=== PATIENT | female | born 1995 | race Caucasian/White ===

== ENCOUNTER 2016-12-07 17:25 | Outpatient (CLI) | payer MEDICAID ==
--- NOTE | 2016-12-07 18:41 | Non Stress Test Report ---
Non Stress Test Datetime Report Generated by CPN: 12/07/2016 18:41 DEMOGRAPHIC EGA NST: 35.2 INDICATION Indication for Study: Diabetes Mellitus; Ordered by Provider MONITORING Monitor Explained: Monitor Explained; Test Explained; Patient Verbalized Understanding Time on Monitor: 12/07/2016 17:44 Time off Monitor: 12/07/2016 18:22 NST Duration: 38 NST INTERVENTIONS NST Interventions: PO Hydration; Reposition Patient Physician Notified NST: Dr. Neilsen BABY A: [id number] BABY A Movement : Present Contraction Frequency : Occassional FHR Baseline : 145 Accelerations : 15X15 Decelerations : None Variability : Moderate 6-25bpm NST Review: Meets Criteria for Reactive NST NST Review and Verified By : Jordon Malagon RN NST Results: Reactive NST REPORT Report Trigger: Send Report
--- NOTE | 2016-12-07 21:46 | L&D Discharge Summary ---
OB Discharge Summary Datetime Report Generated by CPN: 12/07/2016 21:46 DISCHARGE DIAGNOSIS Diagnosis/Symptoms: Reassuring Surveillance - Annotate Details Diagnoses/Symptoms Other: Reactive NST Number of Babies in Womb: 1 Parity: 1 DIET/ACTIVITY/RESTRICTIONS Diet: Regular Activity: Normal Activity TEACHING/INSTRUCTIONS/REFERRALS Instructions Given To: Pt Instructions Understood: Patient Verbalized Understanding; Support Person Verbalized Understanding Referrals: None Educational Materials- Other: kick Counts DISCHARGE INFORMATION Discharged AMA: No Discharge Date/Time: 12/07/2016 18:36 Discharged To: Home Discharge Provider Name: Dr. Dixon Accompanied By: Self Discharge Method: Ambulatory Condition: Stable FOLLOW UP INFORMATION Follow Up With: [facility] Follow Up On: As Scheduled Follow Up Phone Number: [facility] -
--- NOTE | 2016-12-14 22:47 | L&D Current Admission ---
Current Admit Datetime Report Generated by CPN: 12/14/2016 22:45 Chief Complaint: Pt sent from office for repeat NST (12/07/2016 17:50:Kayla Nguyen RN)
--- NOTE | 2016-12-14 22:47 | L&D General Admission ---
General Admit Datetime Report Generated by CPN: 12/14/2016 22:45 Patient Age: 21 (10/27/2016 11:36:QS system process) EDC: 01/09/2017 00:00 (12/07/2016 17:35:Kayla Nguyen RN) : 1 (12/07/2016 17:35:Kayla Nguyen RN) Para: 1 (12/07/2016 17:35:Kayla Nguyen RN) Term: 1 (12/07/2016 17:35:Kayla Nguyen RN) : 0 (12/07/2016 17:35:Kayla Nguyen RN) Spontaneous Abortions: 0 (12/07/2016 17:35:Kayla Nguyen RN) Induced Abortions: 0 (12/07/2016 17:35:Kayla Nguyen RN) Livin (12/07/2016 17:35:Kayla Nguyen RN) Cesareans: 1 (12/07/2016 17:35:Kayla Nguyen RN) VBACs: 0 (12/07/2016 17:35:Kayla Nguyen RN) Ectopic: 0 (12/07/2016 17:35:Kayla Nguyen RN) Multiple Births: 0 (12/07/2016 17:35:Kayla Nguyen RN) Baby, Number in Womb: 1 (12/07/2016 17:35:Kayla Nguyen RN) Primary Chief Unit Forester: [facility] (12/07/2016 17:35:Kayla Nguyen RN) Adequate Care: Yes (12/07/2016 17:35:Kayla Nguyen RN) Prepregnancy Weight (lb): 180 (12/07/2016 17:35:Kayla Nguyen RN) Medication Allergies: No Known Allergies (12/08/2015) (10/27/2016 11:36:QS system process) Primary Language: South African (12/07/2016 17:35:Kayla Nguyen RN) Address: [address] [place] [address] (10/27/2016 11:36:QS system process) Zipcode: [address] (10/27/2016 11:36:QS system process) Home (12/07/2016 17:26:QS system process) Home (10/27/2016 11:36:QS system process) SSN: [id number] (10/27/2016 11:36:QS system process) Next of Kin Name: ZAHRA NAGY (10/27/2016 11:36:QS system process) Next of Kin (10/27/2016 11:36:QS system process) Next of Kin Relationship: OR (10/27/2016 11:36:QS system process) Date of : 1995 (10/27/2016 11:36:QS system process) Marital Status: Single (10/27/2016 11:36:QS system process) Sex: Female (10/27/2016 11:36:QS system process) Race: (10/27/2016 11:36:QS system process) Ethnicity: Non- or (10/27/2016 11:36:QS system process) Protestant: None (10/27/2016 11:36:QS system process) Blood Type: O Positive (12/07/2016 17:35:Kayla Nguyen RN) Previous Procedures: Ultrasound (12/07/2016 17:35:Kayla Nguyen RN) Current Procedures: Ultrasound (12/07/2016 17:35:Kayla Nguyen RN) History of Gestational Diabetes: Yes (12/07/2016 17:35:Kayla Nguyen RN) Comments Obstetrical History: G1- C/S Pre-eclampsia @ 39 wks G2- Current GDM on Glyburide (12/07/2016 17:35:Kayla Nguyen RN) Med Hx Diabetes: Yes (12/07/2016 17:35:Kayla Nguyen RN) Diabetes Type: Gestational Diabetes (12/07/2016 17:35:Kayla Nguyen RN)
--- NOTE | 2016-12-14 22:48 | L&D Discharge Summary ---
OB Discharge Summary Datetime Report Generated by CPN: 12/14/2016 22:45 DISCHARGE DIAGNOSIS Diagnosis/Symptoms: Reassuring Surveillance - Annotate Details Diagnoses/Symptoms Other: Reactive NST Gestation: 36.2 Number of Babies in Womb: 1 Parity: 1 DIET/ACTIVITY/RESTRICTIONS Diet: Regular Activity: Normal Activity TEACHING/INSTRUCTIONS/REFERRALS Instructions Given To: Pt Instructions Understood: Patient Verbalized Understanding; Support Person Verbalized Understanding Referrals: None Educational Materials- Other: kick Counts DISCHARGE INFORMATION Discharged AMA: No Discharge Date/Time: 12/07/2016 18:36 Discharged To: Home Discharge Provider Name: Dr. Dixon Accompanied By: Self Discharge Method: Ambulatory Condition: Stable FOLLOW UP INFORMATION Follow Up With: [facility] Follow Up On: As Scheduled Follow Up Phone Number: [facility] -
--- NOTE | 2016-12-15 04:47 | L&D General Admission ---
General Admit Datetime Report Generated by CPN: 12/15/2016 04:45 INFORMATION Patient Age: 21 (10/27/2016 11:36:QS system process) EDC: 01/09/2017 00:00 (12/07/2016 17:35:Kayla Nguyen RN) : 1 (12/07/2016 17:35:Kayla Nguyen RN) Para: 1 (12/07/2016 17:35:Kayla Nguyen RN) Term: 1 (12/07/2016 17:35:Kayla Nguyen RN) : 0 (12/07/2016 17:35:Kayla Nguyen RN) Spontaneous Abortions: 0 (12/07/2016 17:35:Kayla Nguyen RN) Induced Abortions: 0 (12/07/2016 17:35:Kayla Nguyen RN) Livin (12/07/2016 17:35:Kayla Nguyen RN) Cesareans: 1 (12/07/2016 17:35:Kayla Nguyen RN) VBACs: 0 (12/07/2016 17:35:Kayla Nguyen RN) Ectopic: 0 (12/07/2016 17:35:Kayla Nguyen RN) Multiple Births: 0 (12/07/2016 17:35:Kayla Nguyen RN) Baby, Number in Womb: 1 (12/07/2016 17:35:Kayla Nguyen RN) CARE Primary Investigator Fraud: [facility] (12/07/2016 17:35:Kayla Nguyen RN) Adequate Care: Yes (12/07/2016 17:35:Kayla Nguyen RN) Prepregnancy Weight (lb): 180 (12/07/2016 17:35:Kayla Nguyen RN) Prepregnancy Weight (kg): 81.8 (12/07/2016 17:35:QS system process) Height (in): 63 (12/07/2016 17:56:QS system process) ALLERGIES Medication Allergies: No Known Allergies (12/08/2015) (10/27/2016 11:36:QS system process) COMMUNICATION Primary Language: Swedish (12/07/2016 17:35:Kayla Nguyen RN) DEMOGRAPHICS Address: [address] [place] [address], [address] [address] (10/27/2016 11:36:QS system process) Zipcode: [phone] (10/27/2016 11:36:QS system process) Home (12/07/2016 17:26:QS system process) Home (10/27/2016 11:36:QS system process) N: [id number] (10/27/2016 11:36:QS system process) Next of Kin Name: ZAHRA NAGY (10/27/2016 11:36:QS system process) Next of Kin (10/27/2016 11:36:QS system process) Next of Kin Relationship: OR (10/27/2016 11:36:QS system process) Date of : 1995 (10/27/2016 11:36:QS system process) Marital Status: Single (10/27/2016 11:36:QS system process) Sex: Female (10/27/2016 11:36:QS system process) Race: (10/27/2016 11:36:QS system process) Ethnicity: Non- or (10/27/2016 11:36:QS system process) Scientologist: None (10/27/2016 11:36:QS system process) LABS Blood Type: O Positive (12/07/2016 17:35:Kayla Nguyen RN) OB/PREVIOUS HISTORY Previous Procedures: Ultrasound (12/07/2016 17:35:Kayla Nguyen RN) Current Procedures: Ultrasound (12/07/2016 17:35:Kayla Nguyen RN) History of Gestational Diabetes: Yes (12/07/2016 17:35:Kayla Nguyen RN) Comments Obstetrical History: G1- C/S Pre-eclampsia @ 39 wks G2- Current GDM on Glyburide (12/07/2016 17:35:Kayla Nguyen RN) MEDICAL HISTORY Med Hx Diabetes: Yes (12/07/2016 17:35:Kayla Nguyen RN) Diabetes Type: Gestational Diabetes (12/07/2016 17:35:Kayla Nguyen RN)
--- NOTE | 2016-12-15 04:47 | L&D Discharge Summary ---
OB Discharge Summary Datetime Report Generated by CPN: 12/15/2016 04:45 DISCHARGE DIAGNOSIS Diagnosis/Symptoms: Reassuring Surveillance - Annotate Details Diagnoses/Symptoms Other: Reactive NST Gestation: 36.2 Number of Babies in Womb: 1 Parity: 1 DIET/ACTIVITY/RESTRICTIONS Diet: Regular Activity: Normal Activity TEACHING/INSTRUCTIONS/REFERRALS Instructions Given To: Pt Instructions Understood: Patient Verbalized Understanding; Support Person Verbalized Understanding Referrals: None Educational Materials- Other: kick Counts DISCHARGE INFORMATION Discharged AMA: No Discharge Date/Time: 12/07/2016 18:36 Discharged To: Home Discharge Provider Name: Dr. Dixon Accompanied By: Self Discharge Method: Ambulatory Condition: Stable FOLLOW UP INFORMATION Follow Up With: [facility] Follow Up On: As Scheduled Follow Up Phone Number: [facility] -
--- NOTE | 2016-12-15 04:47 | L&D Current Admission ---
Current Admit Datetime Report Generated by CPN: 12/15/2016 04:45 ADMISSION INFORMATION Chief Complaint: Pt sent from office for repeat NST (12/07/2016 17:50:Kayla Nguyen RN)
--- NOTE | 2016-12-15 10:47 | L&D General Admission ---
General Admit Datetime Report Generated by CPN: 12/15/2016 10:45 INFORMATION Patient Age: 21 (10/27/2016 11:36:QS system process) EDC: 01/09/2017 00:00 (12/07/2016 17:35:Kayla Nguyen RN) : 1 (12/07/2016 17:35:Kayla Nguyen RN) Para: 1 (12/07/2016 17:35:Kayla Nguyen RN) Term: 1 (12/07/2016 17:35:Kayla Nguyen RN) : 0 (12/07/2016 17:35:Kayla Nguyen RN) Spontaneous Abortions: 0 (12/07/2016 17:35:Kayla Nguyen RN) Induced Abortions: 0 (12/07/2016 17:35:Kayla Nguyen RN) Livin (12/07/2016 17:35:Kayla Nguyen RN) Cesareans: 1 (12/07/2016 17:35:Kayla Nguyen RN) VBACs: 0 (12/07/2016 17:35:Kayla Nguyen RN) Ectopic: 0 (12/07/2016 17:35:Kayla Nguyen RN) Multiple Births: 0 (12/07/2016 17:35:Kayla Nguyen RN) Baby, Number in Womb: 1 (12/07/2016 17:35:Kayla Nguyen RN) CARE Primary Pressurised Container Filler: [facility] (12/07/2016 17:35:Kayla Nguyen RN) Adequate Care: Yes (12/07/2016 17:35:Kayla Nguyen RN) Prepregnancy Weight (lb): 180 (12/07/2016 17:35:Kayla Nguyen RN) Prepregnancy Weight (kg): 81.8 (12/07/2016 17:35:QS system process) Height (in): 63 (12/07/2016 17:56:QS system process) ALLERGIES Medication Allergies: No Known Allergies (12/08/2015) (10/27/2016 11:36:QS system process) COMMUNICATION Primary Language: Ivorian (12/07/2016 17:35:Kayla Nguyen RN) DEMOGRAPHICS Address: [address] [place] [address], [address] [address] (10/27/2016 11:36:QS system process) Zipcode: [address] (10/27/2016 11:36:QS system process) Home (12/07/2016 17:26:QS system process) Home (10/27/2016 11:36:QS system process) N: [phone] (10/27/2016 11:36:QS system process) Next of Kin Name: ZAHRA NAGY (10/27/2016 11:36:QS system process) Next of Kin (10/27/2016 11:36:QS system process) Next of Kin Relationship: OR (10/27/2016 11:36:QS system process) Date of : 1995 (10/27/2016 11:36:QS system process) Marital Status: Single (10/27/2016 11:36:QS system process) Sex: Female (10/27/2016 11:36:QS system process) Race: (10/27/2016 11:36:QS system process) Ethnicity: Non- or (10/27/2016 11:36:QS system process) Adventist: None (10/27/2016 11:36:QS system process) LABS Blood Type: O Positive (12/07/2016 17:35:Kayla Nguyen RN) OB/PREVIOUS HISTORY Previous Procedures: Ultrasound (12/07/2016 17:35:Kayla Nguyen RN) Current Procedures: Ultrasound (12/07/2016 17:35:Kayla Nguyen RN) History of Gestational Diabetes: Yes (12/07/2016 17:35:Kayla Nguyen RN) Comments Obstetrical History: G1- C/S Pre-eclampsia @ 39 wks G2- Current GDM on Glyburide (12/07/2016 17:35:Kayla Nguyen RN) MEDICAL HISTORY Med Hx Diabetes: Yes (12/07/2016 17:35:Kayla Nguyen RN) Diabetes Type: Gestational Diabetes (12/07/2016 17:35:Kayla Nguyen RN)
--- NOTE | 2016-12-15 10:47 | L&D Discharge Summary ---
OB Discharge Summary Datetime Report Generated by CPN: 12/15/2016 10:45 DISCHARGE DIAGNOSIS Diagnosis/Symptoms: Reassuring Surveillance - Annotate Details Diagnoses/Symptoms Other: Reactive NST Gestation: 36.2 Number of Babies in Womb: 1 Parity: 1 DIET/ACTIVITY/RESTRICTIONS Diet: Regular Activity: Normal Activity TEACHING/INSTRUCTIONS/REFERRALS Instructions Given To: Pt Instructions Understood: Patient Verbalized Understanding; Support Person Verbalized Understanding Referrals: None Educational Materials- Other: kick Counts DISCHARGE INFORMATION Discharged AMA: No Discharge Date/Time: 12/07/2016 18:36 Discharged To: Home Discharge Provider Name: Dr. Dixon Accompanied By: Self Discharge Method: Ambulatory Condition: Stable FOLLOW UP INFORMATION Follow Up With: [facility] Follow Up On: As Scheduled Follow Up Phone Number: [facility] -
--- NOTE | 2016-12-15 10:47 | L&D Current Admission ---
Current Admit Datetime Report Generated by CPN: 12/15/2016 10:45 ADMISSION INFORMATION Chief Complaint: Pt sent from office for repeat NST (12/07/2016 17:50:Kayla Nguyen RN)
== END 2016-12-07 18:36 | disposition home or self-care (01) ==
LOC: LC 17:25
PROVIDERS: ATTEND Obstetrics & Gynecology
PROC: 4A1HXCZ Monitoring of Products of Conception, Cardiac Rate, External Approach (ICD-10-PCS; principal; 2016-12-07)
DX: Z34.83 Encounter for supervision of other normal pregnancy, third trimester (principal); Z36 Encounter for antenatal screening of mother; Z3A.35 35 weeks gestation of pregnancy
CPT/HCPCS: 59025

== ENCOUNTER 2016-12-29 12:05 | Outpatient (CLI) | payer MEDICAID | END 2016-12-29 12:33 | disposition home or self-care (01) | LOC: LC 12:05 | PROVIDERS: ATTEND Obstetrics & Gynecology | PROC: 4A1HXCZ Monitoring of Products of Conception, Cardiac Rate, External Approach (ICD-10-PCS; principal; 2016-12-29) | DX: O24.419 Gestational diabetes mellitus in pregnancy, unspecified control (principal); Z3A.38 38 weeks gestation of pregnancy | CPT/HCPCS: 59025 ==

== ENCOUNTER 2017-01-04 05:02 | Inpatient (IN) | payer MEDICAID ==
[2017-01-03 12:58] LABS: APPEARANCE,URINE CLEAR; BILIRUBIN,URINE NEGATIVE (NEGATIVE); GLUCOSE, URINE NEGATIVE (NEGATIVE); KETONES,URINE NEGATIVE (NEGATIVE); LEUKOCYTE ESTERASE,URINE NEGATIVE (NEGATIVE); NITRITE,URINE NEGATIVE (NEGATIVE); PROTEIN,URINE NEGATIVE (NEGATIVE); URINE SPECIFIC GRAVITY 1.008; UROBILINOGEN,URINE NEGATIVE mg/dL (<2.0)
[2017-01-03 13:06] LABS: ABSOLUTE BASOPHILS # (AUTO) 0.1 10^3/uL (0.0-0.2); ABSOLUTE EOSINOPHILS # (AUTO) 0.1 10^3/uL (0.0-0.6); ABSOLUTE LYMPHOCYTES (AUTO) 2.1 10^3/uL (0.5-4.7); ABSOLUTE MONOCYTES (AUTO) 0.6 10^3/uL (0.1-1.4); ABSOLUTE NEUT (AUTO) 9.3 10^3/uL (1.7-8.2); BASOPHILS % (AUTO) 0.4 % (0-2); EOSINOPHILS % (AUTO) 0.7 % (0-6); HEMATOCRIT 36.7 % (36.0-47.0); HEMOGLOBIN 11.9 g/dL (12.0-15.5); LYMPHOCYTES % (AUTO) 17.1 % (13-45); MEAN CORPUSCULAR HEMOGLOBIN 24.6 pg (27.0-33.4); MEAN CORPUSCULAR HGB CONC 32.6 g/dL (32.0-36.0); MEAN CORPUSCULAR VOLUME 76 fl (80-97); MONOCYTES % (AUTO) 5.1 % (3-13); RED BLOOD COUNT 4.85 10^6/uL (3.72-5.28); RED CELL DISTRIBUTION WIDTH 18.1 % (11.5-14.0); SEGMENTED NEUTROPHILS % (AUTO) 76.7 % (42-78); WHITE BLOOD COUNT 12.2 10^3/uL (4.0-10.5)
[2017-01-03 13:27] LABS: URINE BARBITURATES SCREEN NEGATIVE; URINE METHADONE SCREEN NEGATIVE; URINE OPIATES LOW NEGATIVE; URINE PHENCYCLIDINE SCREEN NEGATIVE
[~2017-01-04 05:02] MED LIST: CEFAZOLIN 2 GM/D5W RTU 2 GM/50 ML RTUPB IV PRN; RINGERS SOLUTION,LACTATED 1,000 ML IV PRN; RINGERS SOLUTION,LACTATED 2,000 ML IV PRN
[2017-01-04] MEDS ORDERED: EPHEDRINE SULFATE INJ 50 MG/1 ML AMPULE ONE (07:31)
[2017-01-04] MEDS ORDERED: MIDAZOLAM 2 MG/2 ML INJ ONE (07:31)
[2017-01-04] MEDS ORDERED: OXYTOCIN/NORMAL SALINE 20 UNIT/1,000 ML RTUINJ ONE (07:32)
[2017-01-04] MEDS ORDERED: OXYCODONE-ACETAMINOPHEN 5-325 MG TABLET PO PRN ×3 (07:57→08:47)
[2017-01-04] MEDS ORDERED: MEPERIDINE HCL/PF INJ 25 MG/1 ML DISP.SYRIN IV PRN (07:57)
[2017-01-04] MEDS ORDERED: FENTANYL CITRATE INJ/PF 100 MCG/2 ML AMPUL IV PRN ×3 (07:57)
[2017-01-04] MEDS ORDERED: PROMETHAZINE HCL INJ 25 MG/1 ML VIAL IV PRN ×3 (07:57→08:47)
[2017-01-04] MEDS ORDERED: MORPHINE SULFATE 10 MG/ML INJ IV PRN (07:57)
[2017-01-04] MEDS ORDERED: DIPHENHYDRAMINE HCL 50 MG/ML VIAL IV PRN (07:57)
[2017-01-04] MEDS ORDERED: RINGERS SOLUTION,LACTATED 1,000 ML IV PRN (08:47)
[2017-01-04] MEDS ORDERED: MEASLES,MUMPS&RUBELLA VACC/PF 0.5 ML VIAL SUBCUT PRN (08:47)
[2017-01-04] MEDS ORDERED: SIMETHICONE 80 MG TAB.CHEW PO PRN (08:47)
[2017-01-04] MEDS ORDERED: ACETAMINOPHEN 325 MG TABLET PO PRN (08:47)
[2017-01-04] MEDS ORDERED: OXYTOCIN/NORMAL SALINE 1,000 ML IV PRN (08:47)
[2017-01-04] MEDS ORDERED: ACETAMINOPHEN 100 ML IV PRN (08:47)
[2017-01-04] MEDS ORDERED: DIPH/PERTUSS(ACELL)/TETANUS VAC/PF 0.5 ML SYR (>=10YO) IM PRN (08:47)
--- NOTE | 2017-01-04 08:57 | Operative Report ---
Operative Report DATE OF SURGERY: 01/04/17 PREOPERATIVE DIAGNOSIS: Repeat to prevent uterine rupture POSTOPERATIVE DIAGNOSIS: Same OPERATION: via low transverse uterine incision SURGEON: KAREN RAMESH CAMP ATTENDANT: OR staff ANESTHESIA: Spinal TISSUE REMOVED OR ALTERED: Placenta COMPLICATIONS: None ESTIMATED BLOOD LOSS: 250 mL INTRAOPERATIVE FINDINGS: Viable male normal uterus tubes and ovaries PROCEDURE: Patient was taken to the OR and placed in supine position after her spinal anesthesia. She is prepared and draped in sterile fashion. Eugene was placed for drainage of the bladder. Low transverse incision was made and carried down the level of the fascia. The fascial incision was made with C safe knife and extended bilaterally with curved Valente scissors. The fascia was off the rectus muscles using sharp and blunt dissection. The rectus muscles are in the midline. The peritoneum was entered without incident. Bladder blade was placed in uterine segment was identified. A low transverse incision was made creating a bladder flap. Bladder blade was placed low transverse uterine incision was made with the knife and extended with fingertips. The baby was delivered with some fundal pressure and the assistance of a Kiwi vacuum. It took one pull with pressure in the green. No pop offs. Mouth and nose were suctioned free. The cord is doubly clamped and cut. Baby is passed off to the wirer in attendance. The placenta was manually extracted with trailing membranes. The uterus was externalized wrapped in a moist lap sponge. Uterine contents wiped free. Uterus was closed with a running locking layer of 0 chromic suture using the second layer to imbricate the first completing a double layer closure of the uterus. The serosa was closed with a running 2-0 chromic stitch. The pelvis was irrigated and suctioned free of fluid the uterus was replaced in the abdomen. The abdominal wall peritoneum was closed with running 2-0 chromic stitch. Fascia was closed with a running 0 Vicryl in 2 segments. Rustam's layer was brought together with 0 plain gut stitch and the skin was closed with running subcuticular 4-0 undyed Vicryl stitch. The wound was dressed mother and baby did well.
[2017-01-04] MEDS: FENTANYL CITRATE INJ/PF 100 MCG/2 ML AMPUL ONE ×4 (10:00→10:15)
[2017-01-04] MEDS ORDERED: ONDANSETRON HCL INJ/PF 4 MG/2 ML SDV ONE (10:46)
[2017-01-04] MEDS: KETOROLAC TROMETHAMINE INJ/PF 30 MG/1 ML SDV IV SCH ×2 (11:34→21:16)
[2017-01-04] MEDS: HYDROMORPHONE HCL INJ/PF 2 MG/ML AMPULE IV PRN ×2 (11:34→15:34)
[2017-01-04] MEDS: DOCUSATE SODIUM 100 MG CAPSULE PO SCH ×2 (12:50→17:06)
[2017-01-04] MEDS: PRENATAL VITAMIN W-O CA NO5/FE FUMARATE/FA CAPSULE PO SCH (12:50)
[2017-01-04] MEDS: OXYCODONE-ACETAMINOPHEN 5-325 MG TABLET PO PRN ×3 (13:26→22:28)
[2017-01-05] MEDS: OXYCODONE-ACETAMINOPHEN 5-325 MG TABLET PO PRN ×5 (02:41→22:16)
[2017-01-05] MEDS: KETOROLAC TROMETHAMINE INJ/PF 30 MG/1 ML SDV IV SCH (05:47)
[2017-01-05 06:42] LABS: HEMATOCRIT 30.1 % (36.0-47.0); HEMOGLOBIN 10.1 g/dL (12.0-15.5); HGB HCT DIFFERENCE 0.2; MEAN CORPUSCULAR HEMOGLOBIN 25.5 pg (27.0-33.4); MEAN CORPUSCULAR HGB CONC 33.6 g/dL (32.0-36.0); MEAN CORPUSCULAR VOLUME 76 fl (80-97); RED BLOOD COUNT 3.96 10^6/uL (3.72-5.28); WHITE BLOOD COUNT 11.6 10^3/uL (4.0-10.5)
--- NOTE | 2017-01-05 08:54 | PDOC PROGRESS REPORT ---
Subjective-OB Subjective: Post Delivery Day: 1 21 year old. Denies any needs at this time, states lochia is stable, pain is moderately well controlled, voiding without difficulty, passing gas, tolerating diet. Physical Exam (OB) Vital Signs: Temp Pulse Resp BP Pulse Ox 97.8 F 94 18 120/72 99 01/05/17 07:15 01/05/17 07:15 01/05/17 07:15 01/05/17 07:15 01/05/17 07:15 Intake & Output 01/04/17 01/05/17 01/06/17 06:59 06:59 06:59 Intake Total 2750 Output Total 2800 Balance -50 Weight 86.6 kg - Dressing Removed: No - op site Incision: Well Approximated Closure Type: opsite - Lochia Lochia Amount: Scant < 10 ml Lochia Color: Rubra/Red - Abdomen Description: Soft Hernia Present: No Fundal Description: Firm, Midline Fundal Height: u/u - u/2 Objective-Diagnostic Laboratory: 01/05/17 06:31 01/05/17 06:31 WBC 11.6 H RBC 3.96 Hgb 10.1 L Hct 30.1 L MCV 76 L MCH 25.5 L MCHC 33.6 RDW 18.0 H Plt Count 313 Assessment and Plan(PN) - Assessment and Plan (1) delivery delivered Is this a current diagnosis for this admission?: YesPlan: routine post op care (2) Acute blood loss anemia Is this a current diagnosis for this admission?: YesPlan: ferrous sulfate increase dietary iron (3) GDM, class A2 Is this a current diagnosis for this admission?: YesPlan: pp bs check yearly diabetes screening (4) Pre-eclampsia Qualifiers: Trimester: third trimester Qualified Code(s): O14.93 - Unspecified pre-eclampsia, third trimester Is this a current diagnosis for this admission?: YesPlan: bp check - Time Spent with Patient Time with patient: Less than 15 minutes Critical Time spent with patient: Less than 15 minutes Smoking Education Provided: Over 3 minutes Medications reviewed and adjusted accordingly: Yes - Disposition Anticipated Discharge: Home Within: within 24 hours
[2017-01-05] MEDS: PRENATAL VITAMIN W-O CA NO5/FE FUMARATE/FA CAPSULE PO SCH (09:23)
[2017-01-05] MEDS: DOCUSATE SODIUM 100 MG CAPSULE PO SCH ×2 (09:23→17:40)
[2017-01-05] MEDS: IBUPROFEN 800 MG TABLET PO SCH ×3 (11:54→23:16)
[2017-01-06] MEDS: OXYCODONE-ACETAMINOPHEN 5-325 MG TABLET PO PRN ×2 (05:44→10:38)
[2017-01-06] MEDS: IBUPROFEN 800 MG TABLET PO SCH ×2 (05:44→11:51)
--- NOTE | 2017-01-06 10:12 | PDOC PROGRESS REPORT ---
Subjective-OB Subjective: Post Delivery Day: 21 year old. Denies any needs at this time Sitting on side of bed, ready to go home, bottle feeding, wearing bra, + flatus , no nausea, no vomiting, family at BS Physical Exam (OB) Vital Signs: Temp Pulse Resp BP Pulse Ox 97.9 F 79 16 128/87 H 99 01/06/17 07:57 01/06/17 07:57 01/06/17 07:57 01/06/17 07:57 01/06/17 07:57 Intake & Output 01/05/17 01/06/17 01/07/17 06:59 06:59 06:59 Intake Total 2750 Output Total 2800 Balance -50 - Dressing Removed: No Incision: Dressing, Well Approximated Closure Type: opsite - Lochia Lochia Amount: Scant < 10 ml Lochia Color: Rubra/Red - Abdomen Description: Soft, Round Hernia Present: No Fundal Description: Firm, Midline Fundal Height: u/u - u/2 Objective-Diagnostic Laboratory: 01/05/17 06:31 Assessment and Plan(PN) - Assessment and Plan (1) delivery delivered Is this a current diagnosis for this admission?: Yes (2) Acute blood loss anemia Is this a current diagnosis for this admission?: Yes (3) GDM, class A2 Is this a current diagnosis for this admission?: Yes (4) Pre-eclampsia Qualifiers: Trimester: third trimester Qualified Code(s): O14.93 - Unspecified pre-eclampsia, third trimester Is this a current diagnosis for this admission?: Yes - Time Spent with Patient Smoking Education Provided: Over 3 minutes Medications reviewed and adjusted accordingly: Yes - Disposition Anticipated Discharge: Home Within: Other - home todat
--- NOTE | 2017-01-06 10:20 | PDOC DISCHARGE SUMMARY ---
Final Diagnosis Discharge Date: 01/06/17 - Final Diagnosis (1) delivery delivered Is this a current diagnosis for this admission?: Yes (2) Acute blood loss anemia Is this a current diagnosis for this admission?: Yes (3) GDM, class A2 Is this a current diagnosis for this admission?: Yes (4) Pre-eclampsia Is this a current diagnosis for this admission?: Yes Discharge Data - Discharge Medication Home Medications: Ferrous Sulfate [Iron] 325 mg PO BID 12/07/16 Vit/Iron Fumarate/FA [ Tablet] 1 each PO DAILY 12/07/16 Ibuprofen [Motrin 800 mg Tablet] 800 mg PO Q6 #60 tablet 01/06/17 Oxycodone HCl/Acetaminophen [Percocet 5-325 mg Tablet] 1 tab PO Q4HP PRN #30 tablet 01/06/17 Pnv W-O Ca No5/Fe Fumarate/FA [-U Multiple Vitamin Capsule] 1 cap PO DAILY #0 capsule 01/06/17 Gestational Age: 39 Reason(s) for Admission: Ceasarean Section-Repeat, Gestional Diabetes Procedures: NST, Ultrasound Intrapartum Procedure(s): : Low Cervical, Transverse - [place] Data Baby 1 Male Home with Mother: Yes Complications: No - Diagnosis Test Laboratory: Temp Pulse Resp BP Pulse Ox 97.9 F 79 16 128/87 H 99 01/06/17 07:57 01/06/17 07:57 01/06/17 07:57 01/06/17 07:57 01/06/17 07:57 01/03/17 01/03/17 01/05/17 12:00 12:05 06:31 RBC 4.85 3.96 Hgb 11.9 L 10.1 L Hct 36.7 30.1 L Urine Opiates Screen NEGATIVE - Discharge information/Instructions Discharge Activity: Activity As Tolerated, No Driving, No Lifting Over 10 Pounds , No Lifting/Push/Pulling, Pelvic Rest, No tub bath Discharge Diet: As Tolerated Disposition: HOME WITH HOSPICE Follow up with: [facility] in: 1, Weeks
[2017-01-06] MEDS: PRENATAL VITAMIN W-O CA NO5/FE FUMARATE/FA CAPSULE PO SCH (10:36)
[2017-01-06] MEDS: DOCUSATE SODIUM 100 MG CAPSULE PO SCH (10:36)
[2017-01-06 11:50] VITALS: BP 136/80
--- NOTE | 2017-01-11 09:24 | PDOC DELIVERY SUMMARY ---
Delivery Summary - Maternal Hx : II Hx # Term Pregnancies: 1 QUINCY: 01/09/17 Gestational Age: 39 Ruptured Membranes: AROM Time of Rupture: 08:10 Fluids: Meconium Stained - Delivery Presentation: Vertex Support Person Present: Yes Location: OR : Scheduled Delivery of Placenta Date: 01/04/17 Delivery of Placenta Time: 08:14 - Medications Type of Anesthesia:: Spinal - Assess and Care Baby 1 Delivery of Infant Date: 01/04/17 Delivery of Time: 08:12 at 1 minute: 8 at 5 minutes: 9 Preprinted Number On Band: [id number] Skin to Skin: Yes Skin to Skin (Mins): 2 To Nursery At: 08:20 Infant Weight: 0.04 kg Infant Length: 19 in - Delivery Personnel Nursery RN: STACIA QUAN RN RN: RICCARDO RAY RN: LYUBOV MYRICK MD: KAREN WEISS Nuclear Powerplant Supervisor: LAYLA
--- NOTE | 2017-01-13 14:27 | PDOC DELIVERY SUMMARY ---
Delivery Summary - Maternal Hx : II Hx # Term Pregnancies: 1 QUINCY: 01/09/17 Gestational Age: 39 Ruptured Membranes: AROM Time of Rupture: 08:10 Fluids: Meconium Stained - Delivery Presentation: Vertex Support Person Present: Yes Location: OR : Scheduled Delivery of Placenta Date: 01/04/17 Delivery of Placenta Time: 08:14 - Medications Type of Anesthesia:: Spinal - Assess and Care Baby 1 Delivery of Infant Date: 01/04/17 Delivery of Time: 08:12 at 1 minute: 8 at 5 minutes: 9 Preprinted Number On Band: [id number] Skin to Skin: Yes Skin to Skin (Mins): 2 To Nursery At: 08:20 Infant Weight: 0.04 kg Infant Length: 19 in - Delivery Personnel Nursery RN: STACIA QUAN RN RN: RICCARDO RAY RN: LYUBOV MYRICK MD: KAREN WEISS Stamp Analyst: LAYLA
== END 2017-01-06 13:30 | disposition hospice, home (50) | DRG 765 ==
LOC: 2S 05:02
PROVIDERS: ADMIT Obstetrics & Gynecology; ATTEND Obstetrics & Gynecology
PROC: 4A1HXCZ Monitoring of Products of Conception, Cardiac Rate, External Approach (ICD-10-PCS; 2017-01-04)
PROC: 10D00Z1 Extraction of Products of Conception, Low, Open Approach (ICD-10-PCS; principal; 2017-01-04 07:45)
DX: O34.211 Maternal care for low transverse scar from previous cesarean delivery (principal); D62 Acute posthemorrhagic anemia; O99.02 Anemia complicating childbirth; O14.94 Unspecified pre-eclampsia, complicating childbirth; O24.420 Gestational diabetes mellitus in childbirth, diet controlled; O77.0 Labor and delivery complicated by meconium in amniotic fluid; O99.214 Obesity complicating childbirth; Z68.33 Body mass index [BMI] 33.0-33.9, adult; Z3A.39 39 weeks gestation of pregnancy; Z37.0 Single live birth
CPT/HCPCS: 1961; 36415; 59025; 80307; 81001; 82962; 85025; 85027; 86850; 86900; 86901; 94799; J0690; J1170; J1885; J2250; J2405; J2590; J3010; J3490; J7120